=== PATIENT | female | born 1930 | race Caucasian/White ===

== ENCOUNTER 2018-12-30 10:53 | Emergency (ER) | payer MEDICARE, OTHER ==
[~2018-12-30] VITALS: Ht 157.5 cm; Wt 60.8 kg
[~2018-12-30 10:53] MED LIST: ACET-868 PO; ALEN70TA6 PO; CLON0.5T PO; DOCU-141 PO; GABA100C PO; SOLI5TAB2 PO
--- NOTE | 2018-12-30 11:00 | NUR ---
BIBRA [facility] FROM [facility] FOR SYNCOPAL EPISODE, NO TRAUMA, [id number], PATIENT A/OX1-2, BREATHING EVEN AND UNLABORED, NO SOB NOTED, PLACED ON MONITOR. VSS. WILL MONITOR.
[2018-12-30 11:14] LABS: BASOPHILS # (AUTO) 0.1 /CMM (0.0-0.2); BASOPHILS % (AUTO) 1.4 % (0.0-2.0); EOSINOPHILS % (AUTO) 1.6 % (0.0-6.0); HEMATOCRIT 36 % (33-45); HEMOGLOBIN 12.1 g/dL (11.5-14.8); LYMPHOCYTES # (AUTO) 3.4 /CMM (0.8-4.8); LYMPHOCYTES % (AUTO) 37.6 % (20.0-44.0); MEAN CORPUSCULAR HGB CONC 33 g/dl (31.0-36.0); MEAN CORPUSCULAR VOLUME 92 fL (82-100); MONOCYTES # (AUTO) 0.6 /CMM (0.1-1.30); NEUTROPHILS # (AUTO) 4.7 /CMM (1.8-8.9); NEUTROPHILS % (AUTO) 52.4 % (43.0-81.0); PLATELET COUNT (AUTO) 323 /CMM (150-450); RED BLOOD CELL COUNT(AUTO) 3.97 MIL/uL (4.0-5.2); WHITE BLOOD COUNT (AUTO) 8.9 K/uL (4.3-11.0)
[2018-12-30 11:27] LABS: CALCIUM, SERUM 9.1 mg/dL (8.5-10.1); CARBON DIOXIDE 27 mmol/L (21-32); CHLORIDE 106 mmol/L (98-107); CREATININE 0.9 mg/dL (0.6-1.3); GLUCOSE 150 mg/dL (74-106); POTASSIUM 3.5 mmol/L (3.5-5.1); SODIUM SERUM 142 mmol/L (136-145); UREA NITROGEN, BLOOD 22 mg/dL (7-18)
[2018-12-30 11:33] LABS: ALANINE AMINOTRANSFERASE 8 U/L (12-78); ALBUMIN 3.2 g/dL (3.4-5.0); ALKALINE PHOSPHATASE 97 U/L (46-116); ASPARTATE AMINOTRANSFERASE 20 U/L (15-37); BILIRUBIN,DIRECT 0.1 mg/dL (0.0-0.2); BILIRUBIN,TOTAL 0.2 mg/dL (0.2-1.0); TOTAL PROTEIN, SERUM 6.9 g/dL (6.4-8.2)
--- NOTE | 2018-12-30 11:59 | NUR ---
CALLED [facility] FOR TELE BED.
[2018-12-30 12:04] LABS: APPEARANCE,URINE Cloudy (CLEAR); BILIRUBIN,URINE Negative (NEGATIVE); BLOOD, URINE Moderate Ery/uL (NEGATIVE); COLOR,URINE Yellow (YELLOW); KETONES,URINE Negative (NEGATIVE); LEUKOCYTE ESTERASE ,URINE Small (NEGATIVE); NITRITE, URINE Positive (NEGATIVE); PH,URINE 8.5 (5.0-8.0); PROTEIN,URINE >=300 mg/dl (NEGATIVE); UGLUCOSE Negative (NEGATIVE); UROBILINOGEN,URINE 0.2 EU/dL (0.2)
[2018-12-30 12:17] LABS: BACTERIA,URINE 3+ /HPF (None Seen); MUCUS,URINE Moderate /LPF (None Seen); RBC,URINE 21-50 /HPF (0-2); SQUAMOUS EPITHELIAL CELL,UR Few /HPF (None Seen); WBC,URINE 21-50 /HPF (0-3)
[2018-12-30] MEDS ORDERED: SENN-18 PO (12:28)
[2018-12-30] MEDS ORDERED: PROC10TA13 PO (12:28)
[2018-12-30] MEDS ORDERED: DONE5TAB34 PO (12:28)
[2018-12-30] MEDS ORDERED: VENL150C58 PO (12:28)
[2018-12-30] MEDS ORDERED: HYDR-3026 PO (12:28)
[2018-12-30] MEDS ORDERED: MELA5TAB PO (12:28)
[2018-12-30] MEDS ORDERED: PANT40TA2 PO (12:28)
[2018-12-30] MEDS ORDERED: ESCI10TA PO (12:28)
[2018-12-30] MEDS ORDERED: ZOLP5TAB8 PO (12:28)
[2018-12-30] MEDS ORDERED: QUET25TA PO (12:28)
[2018-12-30] MEDS ORDERED: LORA2TAB PO (12:28)
[2018-12-30] MEDS ORDERED: ACET-2605 PO (12:28)
[2018-12-30] MEDS ORDERED: HALO2TAB PO (12:28)
[2018-12-30] MEDS ORDERED: CARB1TAB21 PO (12:28)
[2018-12-30] MEDS ORDERED: LORA0.5T PO (12:28)
[2018-12-30] MEDS ORDERED: MEMA14CA PO (12:28)
[2018-12-30] MEDS ORDERED: SIME80TA15 PO (12:28)
[2018-12-30] MEDS ORDERED: ACET-868 PO (12:28)
[2018-12-30] MEDS ORDERED: CEFTRIAXONE 1GM BAG (ER ONLY) 1 GM/50 ML PIGGYBACK IV ONE (12:30)
[2018-12-30] MEDS ORDERED: CEFTRIAXONE 1GM BAG (ER ONLY) 50 ML IV ONE (12:37)
[2018-12-30] MEDS ORDERED: LEVETIRACETAM (500MG) 1,000 MG in IV NS 0.9% 100 ML IV SCH (13:30)
--- NOTE | 2018-12-30 13:57 | NUR ---
PATIENT'S SON MADE AWARE OF POSSIBLE TRANSFER TO [facility]. PER SON, HE WANTS TAKE HIS MOM HOME, DR. DIGGS MADE AWARE AND EXPLAINED TO THE SON PLAN OF CARE AND TREATMENT, AND THE RISKS, BENEFITS AND ALTERNATIVE OF LEAVING AMA. SON VERBALIZED UNDERSTANDING AND SIGNED AMA FORM. SON REFUSED KEPPRA ANTIBIOTIC, EXPLAINED RISKS AND BENEFITS, STILL REFUSED.
--- NOTE | 2018-12-30 14:35 | NUR ---
PATIENT'S SON AT BEDSIDE, EXPLAINED DISCHARGE INSTRUCTIONS, AND VERBALIZED UNDERSTANDING, RX PROVIDED, PIV REMOVED. PATIENT LEFT AMA WITH SON, IN STABLE CONDITION.
[2018-12-30 14:57] VITALS: BP 156/98
== END 2018-12-30 15:00 | disposition left against medical advice (07) ==
LOC: ER 10:55
DX: R55 Syncope and collapse (principal); R56.9 Unspecified convulsions; N39.0 Urinary tract infection, site not specified; G20 Parkinson's disease; F03.90 Unspecified dementia, unspecified severity, without behavioral disturbance, psychotic disturbance, mood disturbance, and anxiety; R51 Headache; Z88.2 Allergy status to sulfonamides
CPT/HCPCS: 36415; 70450; 71045; 80048; 80076; 81001; 82550; 82962; 83605; 84484; 85025; 85730; 87040 ×2; 87081; 87086; 93005; 96365; 99284; J0696; J1953; J7030; 81000-TC; 87186-TC